=== PATIENT | female | born 1980 | race Two or more races ===

== ENCOUNTER 2023-04-07 09:32 | Emergency (ER) | payer OTHER ==
[~2023-04-07] VITALS: Ht 162.6 cm; Wt 61.2 kg
[2023-04-07] MEDS ORDERED: PROAIR RESPICL90 MCG (09:55)
[2023-04-07] MEDS ORDERED: SINGULAIR10 MG PO (09:57)
[2023-04-07] MEDS ORDERED: ZESTRIL10 M1 (09:57)
[2023-04-07] MEDS ORDERED: PEPCID AC20 MG PO (09:57)
== END 2023-04-07 12:34 | disposition home or self-care (01) ==
LOC: ER 09:32
DX: J06.9 Acute upper respiratory infection, unspecified (principal); Z88.0 Allergy status to penicillin; Z88.2 Allergy status to sulfonamides; Z20.822 Contact with and (suspected) exposure to COVID-19